=== PATIENT | female | born 1940 | race Caucasian/White ===

== ENCOUNTER 2018-06-18 10:46 | Emergency (ER) | payer MEDICARE, MEDICAID ==
[~2018-06-18] VITALS: Ht 167.6 cm; Wt 84.1 kg
[2018-06-18 10:51] VITALS: Ht 167.6 cm; Wt 84.1 kg
[2018-06-18] MEDS ORDERED: IBUPROFEN 800 MG TAB PO ONE (11:30)
--- NOTE | 2018-06-18 11:58 | ERD ---
ER Documentation Chief Complaint Chief Complaint mehanical fall, hit her head, back pain - feels dizzy; SOB - hx of asthma HPI This is a 78-year-old female here for a fall. The patient says she was walking and lost her balance and she stumbled hitting her right forehead into the door frame then hit her right posterior lower rib cage on the wall. She had no loss of consciousness no nausea vomiting no dizziness no excessive sleepiness. She is complaining of a dull headache on the right side frontal area. She also complains of sharp pain in her lower posterior rib cage she is unable to lay flat because it hurts her ribs. No shortness of breath. No neck pain no focal neurological complaints of numbness weakness no extremity pain other than she does have a right wrist brace on from a fracture to her wrist 2 weeks ago. She says she did not hurt this any worse. Denies any shortness of breath chest pain or abdominal pain no low back pain ROS All systems reviewed and are negative except as per history of present illness. PMhx/Soc Medical and Surgical Hx: pt denies Surgical Hx Hx Alcohol Use: No Hx Substance Use: No Hx Tobacco Use: No Smoking Status: Never smoker FmHx Family History: No coronary disease Physical Exam Vitals Vital Signs Date Temp Pulse Resp B/P (MAP) Pulse Ox O2 O2 Flow FiO2 Time Delivery Rate 06/18/18 98.4 64 25 142/66 96 10:51 (91) Physical Exam Const: Well-developed, well-nourished Head: Right forehead bruise, no significant hematoma, normocephalic Eyes: Normal Conjunctiva, PERRLA, EOMI, normal sclera, no nystagmus ENT: Normal External Ears, Nose and Mouth, moist mucus membranes. Neck: Full range of motion. No meningismus, no lymphadenopathy. Resp: Clear to auscultation bilaterally, no wheezing, rhonchi, rales, the right posterior lower rib cage is reproducible tenderness to palpation and reproducible pain with range of motion of the trunk, no midline spine or thoracic vertebral tenderness Cardio: Regular rate and rhythm, no murmurs, S1 S2 present Abd: Soft, non tender x 4, non distended. Normal bowel sounds, no guarding or rebound, no pulsitile abdominal masses or bruits Skin: No petechiae or rashes, no ecchymosis , no maculopapular rash Back: No midline or flank tenderness Ext: No cyanosis, or edema, FROM x 4, normal inspection, neurovascularly intact x 4, right wrist splint Neur: Awake and alert, STR 5/5 x 4, sensation intact x 4, no focal findings, cerebellum intact Psych: Normal Mood and Affect Results 24 hrs Current Medications Medications Dose Sig/Huseyin Start Time Status Last (Trade) Ordered Route PRN Stop Time Admin Dose Reason Admin Ibuprofen 800 mg ONCE ONCE 06/18/18 DC 06/18/18 (Motrin) PO 11:30 11:56 06/18/18 11:31 Procedures/MDM Ordering MD: RAMA IRIZARRY DO Location: E/R Room/Bed: PROCEDURE: CT Brain without contrast. CLINICAL INDICATION: Trauma, pain. TECHNIQUE: A CT of the brain without contrast was performed utilizing axial sections from the skull base through the vertex. One or more the following does reduction techniques were utilized: Automated exposure control, adjustment of the mA/ or kV according to patient's size, or use of iterative reconstruction technique. Total exam CTDIvol is 39.1 MGy and DLP is 634.23 mGy-cm. DICOM images are available. COMPARISON: None available. FINDINGS: The ventricles and sulci are mildly prominent indicative of volume loss. There is no intracranial hemorrhage, mass effect or midline shift. No abnormal intra- axial or extra-axial fluid collections are seen. The jensen/white matter differentiation is preserved. There are mild foci of hypoattenuation in the white matter, which are nonspecific in etiology but likely reflect chronic small vessel ischemic changes. There are mild intracranial vascular calcifications consistent with atherosclerosis. The visualized paranasal sinuses are essentially clear. Left frontal scalp and left supraorbital soft tissue swelling are noted without underlying skull fracture. IMPRESSION: 1. No acute intracranial hemorrhage, transcortical infarction or mass effect. 2. Mild intracranial atherosclerosis and chronic small vessel ischemic changes. 3. Mild generalized cerebral volume loss. 4. Left frontal scalp and left supraorbital soft tissue swelling are noted without underlying skull fracture. RPTAT: QQ .Jeanie Gonzalez MD, Date Time Electronically viewed and signed by .Jeanie Gonzalez MD, MD on 06/18/2018 11:51 .N/ CC: RAMA IRIZARRY DO [id number] Ordering MD: RAMA IRIZARRY DO Location: E/R Room/Bed: PROCEDURE: CT Chest without contrast CLINICAL INDICATION: Trauma- RIGHT POST LOWER RIB FX? PAIN TECHNIQUE: CT scan of the chest without contrast was performed on a multidetector CT scanner. The patient was scanned without intravenous contrast. Coronal and sagittal reformatted images were obtained from the axial source images. DICOM images are available. CTDIvol equals 15.61 mGy and the total exam DLP equals 517.46 mGy-cm. One or more of the following dose reduction techniques were used: - Automated exposure control. - Adjustment of the mA and/or kV according to patient size. - Use of iterative reconstruction technique. COMPARISON: None available for comparison FINDINGS: Lungs, Pleura, Airway: No focal consolidation, pleural effusion, or pneumothorax. The central tracheobronchial tree is unremarkable. No pulmonary laceration or contusion is identified. No pneumothorax. Cardiovascular, Mediastinum: The heart is normal in size. There is no pericardial effusion. There are atherosclerotic calcifications of the aorta and its brain is, including the coronaries. There is a large hiatal hernia containing a large portion of the stomach. Thyroid: Visualized portions are unremarkable. Lymph nodes: No adenopathy, noting limited evaluation of hilar nodes without IV contrast. Bones: Chronic fracture deformities of the left posterior eighth through tenth ribs. Ribs are incompletely included in the field of view on this exam; posterior tenth and eleventh ribs are partially visualized in the 12th rib is not included. No acute fractures of the visualized ribs. Upper Abdomen: Apparent 1 cm right adrenal adenoma (series 6 image 55). Large amount of stool in the visualized colon. IMPRESSION: 1. Posterior right ribs incompletely visualized on this exam with exclusion of the right 12th rib, as above. No acute fracture of the visualized ribs. No pneumothorax, pulmonary contusion, or laceration. Consider dedicated right rib radiographs series to evaluate the right posterior 10th and 11th ribs, and 12th rib, as clinically indicated. 2. Large hiatal hernia containing a large portion of the stomach. RPTAT: EE Josefina Cedeno Physician Date Time Electronically viewed and signed by Josefian Cedeno Physician on 06/18/2018 12:12 RP/ CC: RAMA IRIZARRY DO [id number] There is no skull fracture or intracranial injury. The patient has no clear rib fracture on CT scan of the chest however the lower ribs are not completely visualized yet there is no evidence of lung injury or pneumothorax. If there are fractures there there likely and significant or may have hairline fractures. We will treat for pain and observation at home Departure Diagnosis: Primary Impression: Head injury due to trauma Encounter type: initial encounter Qualified Codes: S09.90XA - Unspecified injury of head, initial encounter Additional Impression: Chest wall contusion Encounter type: initial encounter Laterality: right Qualified Codes: S20.211A - Contusion of right front wall of thorax, initial encounter Condition: Stable RAMA IRIZARRY DO Jun 18, 2018 11:58
[2018-06-18] MEDS ORDERED: TRAM50TA2 PO (12:48)
[2018-06-18] MEDS ORDERED: ONDA4TAB14 PO (12:48)
[2018-06-18] MEDS ORDERED: IBUP-1561 PO (12:48)
[2018-06-18 13:08] VITALS: BP 132/76; PULSE 81; RESP 20
== END 2018-06-18 13:10 | disposition home or self-care (01) ==
LOC: E/R 10:46
DX: S09.90XA Unspecified injury of head, initial encounter (principal); S20.211A Contusion of right front wall of thorax, initial encounter; J45.909 Unspecified asthma, uncomplicated; W01.190A Fall on same level from slipping, tripping and stumbling with subsequent striking against furniture, initial encounter; Y92.9 Unspecified place or not applicable
CPT/HCPCS: 70450; 71250